=== PATIENT | female | born 1985 | race Caucasian/White ===

== ENCOUNTER → 2020-11-17 10:44 | Outpatient (CLI) | payer OTHER, SELFPAY ==
--- NOTE | ~2020-11-17 | US_ITS ---
EXAMINATION: US right upper quadrant DATE: 11/17/2020 11:02 INDICATION: Dyspepsia, abdominal pain TECHNIQUE: Multiple grayscale and Doppler ultrasound images of the abdomen were obtained. COMPARISON: None available FINDINGS: The head, body, and tail of the pancreas are normal. The liver is normal with normal echoge nicity and echotexture. No surface nodularity. Normal hepatopetal flow in the main portal vein. The g allbladder is normal with no abnormal wall thickening, pericholecystic fluid or stones. The normal co mmon bile duct measures 2 mm. There was no sonographic Short sign. IMPRESSION: 1. Normal sonographic study of the gallbladder. Reviewed, dictated and finalized at location B.
== END ==
PROVIDERS: PCP Physician Assistant Medical; Visit Provider Physician Assistant Medical
DX: R10.13 Epigastric pain (principal); R10.9 Unspecified abdominal pain
CPT/HCPCS: 76705

== ENCOUNTER 2023-03-01 12:15 | Emergency (ER) | payer OTHER, SELFPAY ==
--- NOTE | ~2023-03-01 | XR_ITS ---
XR finger 2nd LT min 2V DATE: 03/01/2023 12:33 INDICATION: Dropped weight on distal index finger. Pain. TECHNIQUE: 3 views COMPARISON: None FINDINGS: There is a comminuted fracture of the distal phalanx of the second digit, including 2 large up to definitely oriented linear nondisplaced fracture lines through the shaft, one extending into t he region of the base. There is a transverse medially completely posteriorly displaced fracture at the base of the tuft. No other fracture or dislocation or any radiopaque soft tissue foreign body is noted. IMPRESSION: Comminuted fracture of distal phalanx Reviewed, dictated and finalized at location A. [employer]OCI[employer]
[2023-03-01 12:27] VITALS: BP 112/79; PULSE 73; RESP 16; TEMP 37; O2SAT 100
--- NOTE | 2023-03-01 12:55 | ED.UPPEXIN ---
HPI - Extremity Injury (Upper) General Chief Complaint: Extremity Injury, Upper Stated Complaint: Injured Finger Time Seen by Provider: 03/01/23 12:48 Source: patient and RN notes reviewed Mode of arrival: ambulatory Limitations: no limitations History of Present Illness HPI narrative: Patient presents today complaining of an injury to her left 2nd finger. A weight at the gym was accidentally dropped on to her finger approximately 2 hours prior to exam. She does report some numbness to the tip of the finger. Currently rates her pain 7/10. Related Data Allergies Allergy/AdvReac Type Severity Reaction Status Date / Time Penicillins Allergy Severe lowers Verified 02/14/23 15:00 heart rate azithromycin [From Zithromax] Allergy Unknown Rash Unverified 02/14/23 15:00 clindamycin Allergy Unknown Rash Unverified 02/14/23 15:00 Review of Systems Review of Systems: CONSTITUTIONAL: Denies body aches, fever, chills, or sweats. EYES: Denies visual changes, redness, or discharge. ENT: Denies rhinorrhea, congestion, sore throat, or otalgia. CARDIOVASCULAR: Denies chest pain, palpitations, or edema. RESPIRATORY: Denies cough or dyspnea. GASTROINTESTINAL: Denies abdominal pain, nausea, vomiting, or diarrhea. GENITOURINARY: Denies dysuria or hematuria. SKIN: Denies rash, itching, or wounds. MUSCULOSKELETAL: + left 2nd finger injury NEUROLOGIC: Denies headache, numbness, tingling, or weakness. PSYCH: Denies depression or anxiety. [facility] Past Medical History Medical History Anxiety Surgical History Surgical History History of reconstruction of anterior cruciate ligament tear right History of repair of right rotator cuff Social History Social History Smoking status: Unknown if ever smoked Alcohol intake: current Drinks per week: 1 Substance use: never Substance use type: does not use Lack of Transportation: No Lack of Food: Never True Current Housing: I Have Housing Concerned About Future Housing: No Difficulty Paying Gas/Electric Bills: No Difficulty Paying for Meds: No Currently Unemployed: No Difficulty w/ Childcare or Family Care: No Living arrangements: with family Occupation/Education: occupation Gender identity (if verbalized by the patient): Female Sexual Orientation (if Verbalized by the Patient): Straight or Heterosexual Comments At time of signature, I have reviewed and agree with nursing past medical, surgical, social and family history unless otherwise noted. Please see nursing chart for further information. There is no relevant family history pertinent to the presenting complaint Exam Narrative: GENERAL: Well-appearing, well-nourished, and in no acute distress. HEAD: Normocephalic, atraumatic. EYES: EOMI. No redness or drainage. Conjunctivae normal. ENT: Mucous membranes pink and moist. NECK: Normal AROM. CHEST: No respiratory distress. EXTREMITIES: Left 2nd finger: Edema and ecchymosis to the PIP extending to the D IP. Tenderness from the PIP to the distal phalanx. Distal sensation is intact. Capillary refill normal. Decreased range of motion due to pain and swelling. SKIN: Warm, dry, no rash. Capillary refill normal. Normal skin turgor. NEURO: No focal deficits. Alert and oriented x3. Gait steady. PSYCH: Normal affect. No signs of depression or anxiety. Course Course Level of Care: Express Care Visit Vital Signs Vital signs: Vital Signs Temperature 98.6 F 03/01/23 12:27 Pulse Rate 73 03/01/23 12:27 Respiratory Rate 16 03/01/23 12:27 Blood Pressure 112/79 03/01/23 12:27 Pulse Oximetry 100 03/01/23 12:27 Temperature 98.6 F 03/01/23 12:27 Pulse Rate 73 03/01/23 12:27 Respiratory Rate 16 03/01/23 12:27 Blood Pressure 112/79 12
== END 2023-03-01 13:10 | disposition home or self-care (01) ==
PROVIDERS: Emergency Provider Nurse Practitioner; PCP Physician Assistant Medical
DX: S62.630A Displaced fracture of distal phalanx of right index finger, initial encounter for closed fracture (principal); W20.8XXA Other cause of strike by thrown, projected or falling object, initial encounter
CPT/HCPCS: 29130; 73140; 99214; G0463

== ENCOUNTER 2024-08-19 02:30 | Day surgery (SDC) | payer OTHER, SELFPAY ==
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
--- OUTSIDE RECORDS SUMMARY | 2024-08-19 02:33 | XMS_ITS | Encounter Summary ---
Author Organization [facility] Healthcare Address [address] [place] [address] Care Team Providers Care Advertising Operations Coordinator Name Role Phone Katy Wills Unavailable [phone] Bridget Murphy Primary Care Provider [phone] Encounter Details Date Type Department Care Team (Late st Contact Info) Description 09/28/2021 Telephone [facility] [address] [place] [id number] Leila Johnson, RT Social History Tobacco Use Types Packs/Day Years Used Date Smoking Tobacco: Never Smokeless Tobacco: Never Alcohol Use Standard Drinks/Week Comments Yes 0 (1 standard drink = 0.6 oz pur e alcohol) socially AUDIT-C Answer Date Recorded Q1: How often do you have a drink containing alc ohol? 2-4 times a month 07/13/2020 Q2: How many drinks containi ng alcohol do you have on a typical day when you are drinking? 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
--- OUTSIDE RECORDS SUMMARY | 2024-08-19 02:33 | XMS_ITS | Referral Summary ---
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 Gender Identity Female 07/31/2020 9:22 PM CDT Sexual Orientation Straight 07/31/2020 9: 22 PM CDT Last Filed Vital Signs Vital Sign Reading Time Taken Comments Blood Pressure 110/71 04/25/2022 8:05 AM PHILOSOPHY PROFESSOR Pulse 66 04/25/2022 8:05 AM PHILOSOPHY PROFESSOR Temperature 36.7 C (98 F) 12/04/2021 2:22 PM CDT Respiratory Rate 18 12/04/2021 2:22 PM CDT Oxygen Saturation 97% 12/04/2021 2:22 PM CDT Inhaled Oxygen Concentration - - Weight 74.8 kg (165 lb) 03/12/2023 5:40 PM PHILOSOPHY PROFESSOR Height 162.6 cm (5' 4) 03/12/2023 5:40 PM PHILOSOPHY PROFESSOR Body Mass Index 28.32 03/12/2023 5:40 PM PHILOSOPHY PROFESSOR Plan of Treatment Not on file Medical Devices Implanted Type Area Thermocouple Tester Device Identifier Shelf Expiration Date Model / Serial / Lot Tightrope Abs, Implant, Open Implanted:Qty: 1 on 07/18/2020 by Frederic Santana MD at [facility] Right: Knee [employer] [id number] 03/09/2025 AR-15 88TN- 1 / / [id number] Description:[facility] ITEM# [id number] IS FLAGGED IN [facility] CHARGE CODE ASSIGNED 325298 COST 194.00EA [employer] [id number] Device Fxatn Tightrope Deploying Suture - [id number] Implanted:Qty: 1 on 07/18/2020 by Frederic Santana MD at [facility] Right: Knee [employer] 04/09/2025 AR-15 88BTB -J / / [id number] [employer] Ar-1588tb-4 Tightrope 14mm Attachable Round Concave Button Fixation - [id number] Implanted:Qty: 1 on 07/18/2020 by Frederic Santana MD at [facility] Right: Knee [employer] 05/07/2025 AR-15 88TB- 4 / / [id number] [facility] Flexigraft Graftlink 7.5-10.5mm 60-80mm Frozen Allograft - [id number] - [id number] Implanted:Qty: 1 on 07/18/2020 by Frederic Santana MD at [facility] Right: [facility] C1713 06/14/2023 FGL / [id number] / [id number] [employer] Ar-2324bcc Swivelock C 4.75mm 19.1mm Closed Eyelet Vent [place] Suture - [id number] Implanted:Qty: 1 on 07/18/2020 by Frederic Santana MD at [facility] Right: Knee [employer] 02/07/2024 AR-23 24BCC / / [id number] [employer] [place] Suture 2.4mm Pushlock Biocomposite 11.3mm 1 Fiberwire Ar-2922bc - [id number] Implanted:Qty: 1 on 12/04/2021 by Frederic Santana MD at [facility] Right: Shoulder [employer] 05/08/2023 AR-2922BC / / [id number] [employer] Fiberlink Arthrex Suturetape 1.3mm Tape Suture Nonabsorbable Ar-7535 - [id number] Implanted:Qty: 1 on 12/04/2021 by Frederic Santana MD at [facility] Right: Shoulder [employer] 02/06/2026 AR-7535 / / [id number] Insurance CHOICE PLUS [facility] H[facility]/PPO Address: [place] [address] CHOICE PLUS [facility] HMO/PPO Address: [place] [address] CHOICE PLUS [facility] HMO/PPO Address: [place] [address] Care Teams Turner In Relationship Specialty Start Date End Date Bridget Murphy PA [address] [place] [id number] PCP - General Physician Net Fisher 08/31/20 Katy Wills PA Physician Net Fisher Orthopedic Surgery 07/18/20
[2024-08-19 06:28] VITALS: BP 119/81; PULSE 72; RESP 16; TEMP 36.7; O2SAT 100
[2024-08-19] MEDS: LACTATED RINGERS 1,000 ML 150 ML IV CONT (06:36)
--- NOTE | 2024-08-19 07:20 | P.PNAN_ITS ---
Anes - Initial Pre Proc Eval Procedure: Operation Date: 08/19/24 07:30 Proposed Procedures p Screening Colonoscopy - Kenji Crockett MD Date/Time: 08/19/24 07:20 Surgeon: Kenji Crockett MD Pre Op Diagnosis: Screening Patient Data Age: 39 Gender: F Height: 1.63 m Weight: 80.6 kg Last Vital Signs Temp 98.1 F 08/19/24 06:28 Pulse 72 08/19/24 06:28 Resp 16 08/19/24 06:28 BP 119/81 08/19/24 06:28 Pulse Ox 100 08/19/24 06:28 O2 Del Method Room Air 08/19/24 06:28 Allergies Allergy/AdvReac Type Severity Reaction Status Date / Time Penicillins Allergy Severe lowers Verified 08/19/24 06:25 heart rate azithromycin (From Zithromax) Allergy Unknown Rash Verified 08/19/24 06:25 clindamycin Allergy Unknown Rash Verified 08/19/24 06:25 Home Medications ?Medication ?Instructions ?Recorded ?Confirmed ?Type escitalopram oxalate 10 mg tablet 10 mg PO DAILY #90 tabs 04/08/24 08/19/24 Rx (Lexapro) Patient hx anesthesia problems: none Family hx anesthesia problems: none Results Review: All pre-operative results and documents have been reviewed as part of the pre- operative evaluation. [facility] Past Medical History Medical History Anxiety Surgical History Surgical History History of repair of right rotator cuff History of reconstruction of anterior cruciate ligament tear right Family History Family History (Updated 04/08/24 @ 14:41 by Gudelia Momin PA-C) Father Carcinoma of colon, Onset Age: 55 Social History Social History Social History: 04/06/24 very confident with medical forms Smoking status: Never smoker Alcohol intake: current Drinks per week: 1 Substance use: never Substance use type: does not use Do You Feel Safe in your Home?: Yes Lack of Transportation: No Lack of Food: Never True Current Housing: I Have Housing Concerned About Future Housing: No Difficulty Paying Gas/Electric Bills: No Difficulty Paying for Meds: No Currently Unemployed: No Education: Master's Degree or Higher Difficulty w/ Childcare or Family Care: No Living arrangements: with family Occupation/Education: occupation Gender identity (if verbalized by the patient): Female Sexual Orientation (if Verbalized by the Patient): Straight or Heterosexual Spiritual care concerns: No Anes - Eval Final PreProcedure Day of Procedure 08/19/24 07:20 Patient weight: obese Heart: regular rate and rhythm Lungs: clear to auscultation Airway: Mallampati scale class II Neurological: alert and oriented Last oral intake: >/= 8 hours ASA classification: II Emergent: no Anesthetic plan: proceed Anesthesia type and monitoring: general GIVS and standard monitoring Results Review: All pre-operative results and documents have been reviewed as part of the pre- operative evaluation. Informed Consent: The patient's anesthetic plan and its attendant risks and benefits were discussed with the patient/family/POA. Questions were solicited and answers provided to the satisfaction of the patient/family/POA.
--- NOTE | 2024-08-19 07:22 | PM.IMHP ---
H&P: HPI History of Present Illness Date/Time: 08/19/24 07:22 Chief Complaint: family history of colorectal cancer Narrative: This patient has family history of colorectal cancer. her father had when he was in his early 50s. This is her 2nd colonoscopy. Review of Systems Review of Systems: All systems reviewed & are unremarkable except as noted in HPI and below PMFSH Past Medical History Medical History Anxiety Surgical History Surgical History History of repair of right rotator cuff History of reconstruction of anterior cruciate ligament tear right Family History Family History (Updated 04/08/24 @ 14:41 by Gudelia Momin PA-C) Father Carcinoma of colon, Onset Age: 55 Social History Social History Social History: 04/06/24 very confident with medical forms Smoking status: Never smoker Alcohol intake: current Drinks per week: 1 Substance use: never Substance use type: does not use Do You Feel Safe in your Home?: Yes Lack of Transportation: No Lack of Food: Never True Current Housing: I Have Housing Concerned About Future Housing: No Difficulty Paying Gas/Electric Bills: No Difficulty Paying for Meds: No Currently Unemployed: No Education: Master's Degree or Higher Difficulty w/ Childcare or Family Care: No Living arrangements: with family Occupation/Education: occupation Gender identity (if verbalized by the patient): Female Sexual Orientation (if Verbalized by the Patient): Straight or Heterosexual Spiritual care concerns: No Meds Home Medications and Allergies Home Medications ?Medication ?Instructions ?Recorded ?Confirmed ?Type escitalopram oxalate 10 mg tablet 10 mg PO DAILY #90 tabs 04/08/24 08/19/24 Rx (Lexapro) Allergies Allergy/AdvReac Type Severity Reaction Status Date / Time Penicillins Allergy Severe lowers Verified 08/19/24 06:25 heart rate azithromycin (From Zithromax) Allergy Unknown Rash Verified 08/19/24 06:25 clindamycin Allergy Unknown Rash Verified 08/19/24 06:25 Vital Signs Vital Signs - 24 hr 08/19/24 06:28 Temperature 98.1 F Pulse Rate 72 Respiratory Rate 16 Blood Pressure 119/81 Pulse Oximetry 100 Oxygen Delivery Room Air Exam Const: General: cooperative and healthy appearing Resp: Effort & Inspection: normal respiratory effort and able to speak in complete sentences Auscultation: clear to auscultation bilaterally Cardio: Rate: regular rate Rhythm: regular rhythm GI: Inspection: normal to inspection GI Palp: No No hepatosplenomegaly present Auscultation: normal bowel sounds Rectal Exam: deferred Skin: General skin exam: normal color Psych: Appearance: grossly normal Mental Status: mental status grossly normal Assessment and Plan Assessment and plan (1) Family history of colorectal cancer: Code(s): Z80.0 - Family history of malignant neoplasm of digestive organs Status: Acute Assessment and Plan: The patient is deemed a good candidate for the procedure. Consent signed. Will proceed.
[2024-08-19] MEDS: SIMETHICONE ORAL SUSPENSION 20 MG/0.3 ML 30 ML BOTTLE 0.6 ML IRRIGATION (07:40)
[2024-08-19 07:41] LABS: BEDSIDEPREGUCG Negative (Negative)
--- NOTE | 2024-08-19 07:47 | S_PTH ---
PATIENT: Nenita Green LOC: [facility] U#:[id number] AGE/SX: 39/F ROOM: RE08/19/[address]: Kenji Crockett MD : 1985 BED: DIS: 08/19/2024 SPEC #: [id number] RECD: 08/19/24 08:56 STATUS: CHANTEL REMatthew #: [id number] SULY: 08/19/24 07:[address]: Kenji Crockett DEPT: [facility] Surgical RECD BY: Trisha Baig ENTERED: 08/19/24 08:57 SP TYPE: Surgical OTHR DR: Gudelia Momin PA-C Tissues: A - Colon Polypectomy B - Colon Polypectomy Procedures: Hematoxylin and Eosin Stain Gross and Microscopic Level 4
[2024-08-19 07:50] VITALS: BP 102/58; PULSE 71; RESP 20; O2SAT 100
[2024-08-19 08:00] VITALS: BP 120/79; PULSE 69; RESP 18; O2SAT 99
[2024-08-19 08:10] VITALS: BP 123/81; PULSE 67; RESP 15; O2SAT 98
== END 2024-08-19 08:23 | disposition home or self-care (01) ==
PROVIDERS: PCP Physician Assistant Medical; Referring Provider Physician Assistant Medical; Visit Provider Internal Medicine Gastroenterology
PROC: 0DJD8ZZ Inspection of Lower Intestinal Tract, Via Natural or Artificial Opening Endoscopic (ICD-10-PCS; CPT 45378; principal; 2024-08-19 07:30)
DX: Z12.11 Encounter for screening for malignant neoplasm of colon (principal); D12.0 Benign neoplasm of cecum; D12.8 Benign neoplasm of rectum; F41.9 Anxiety disorder, unspecified; E66.9 Obesity, unspecified; Z80.0 Family history of malignant neoplasm of digestive organs; Z68.30 Body mass index [BMI] 30.0-30.9, adult; Z98.890 Other specified postprocedural states
CPT/HCPCS: 45385; 88305; J2003; J2704; J7120

== ENCOUNTER 2025-03-07 14:52 | Outpatient (CLI) | payer OTHER, SELFPAY ==
[2025-03-07 15:06] LABS: Hematocrit 43.7 % (37.0-47.0); Hemoglobin 14.3 g/dL (12.0-15.0); Mean Corpuscular HGB Conc 32.7 g/dl (32-36); Mean Corpuscular Hemoglobin 29.3 pg (26-34); Mean Corpuscular Volume 89.5 fl (80-100); Platelet Count Result 188 k/mm3 (150-375); Red Blood Count 4.88 M/mm3 (4.2-5.4); White Blood Count 9.8 K/mm3 (4.5-10.0)
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
--- OUTSIDE RECORDS SUMMARY | 2025-03-07 15:08 | XMS_ITS | Encounter Summary ---
Author Organization [facility] Address [address] [place] [address] Care Team Providers Care Scraper Burrer Name Role Phone Katy Wills Unavailable [phone] Bridget Murphy Primary Care Provider [phone] Encounter Details Date Type Department Care Team (Late st Contact Info) Description 09/28/2021 Telephone [facility] [address] [place] [id number] Leila Johnson, RT Social History Tobacco Use [...] on file Legal Sex Female 7:03 PM MANAGER SCIENTIFIC Gender Identity Female 07/31/2020 9:22 PM CDT Sexual Orientation Straight 07/31/2020 9: 22 PM CDT documented as of this encounter Plan of Treatment Not on file documented as of this encounter Visit Diagnoses Not on filedocumented in this encounter Care Teams Scraper Burrer Relationship Specialty Start Date End Date Bridget Murphy PA [address] [place] [id number] PCP - General Physician Three Knife Trimmer 08/31/20 Katy Wills PA Physician Three Knife Trimmer Orthopedic Surgery 07/18/20 documented as of this encounter
--- OUTSIDE RECORDS SUMMARY | 2025-03-07 15:08 | XMS_ITS | Clinical Summary ---
Author Organization [facility] Address [address] [place] [address] Care Team Providers Care Hospice Massage Therapist Name Role Phone JohannKaty koehlerYamileth PA Unavailable [phone] Bridget Murphy Primary Care Provider [phone] Allergies Active Allergy Reactions Criticality Noted Date [...] (11/20/2021): Added automatically from request for surgery [id number] Rupture of anterior cruciate ligament of right [...] file Legal Sex Female 7:03 PM DIRECTOR ORACLE Gender Identity Female 07/31/2020 9:22 PM CDT Sexual Orientation Straight 07/31/2020 9: 22 PM CDT Last Filed Vital Signs Vital Sign Reading Time Taken Comments Blood Pressure 110/71 04/25/2022 8:05 AM DIRECTOR ORACLE Pulse 66 04/25/2022 8:05 AM DIRECTOR ORACLE Temperature 36.7 C (98 F) 12/04/2021 2:22 PM CDT Respiratory Rate 18 12/04/2021 2:22 PM CDT Oxygen Saturation 97% 12/04/2021 2:22 PM CDT Inhaled Oxygen Concentration - - Weight 74.8 kg (165 lb) 03/12/2023 5:40 PM DIRECTOR ORACLE Height 162.6 cm (5' 4) 03/12/2023 5:40 PM DIRECTOR ORACLE Body Mass Index 28.32 03/12/2023 5:40 PM DIRECTOR ORACLE Plan of Treatment Health Maintenance Due Date Last Done Comments Cervical Cancer Screening 1986 Depression Screening 1986 Hepatitis C Screening 1986 Varicella Vaccines (1 of 2 - 13+ 2-dose series) 07/17/1999 Hepatitis B Screening 2004 Regular Well Visit/Exam 18-64 2004 HPV Vaccines (1 - 3-dose SCD M series) 2013 Covid-19 Vaccine ( - 2024-2 6 season) 2024 09/13/2021, 05/20/2020, 04/22/2020 Influenza Vaccine (#1) 2024 DTaP/Tdap/Td Vaccine (3 - Td or Tdap) 06/22/2030 06/22/2020, 08/14/2012 Pneumococcal vaccine <65 Aged Out No longer eligible based on patient's age to complete this topic Medical Devices Implanted Type Area Director Institution Device Identifier Shelf Expiration Date Model / Serial / Lot Tightrope Abs, Implant, Open Implanted:Qty: 1 on 07/18/2020 by Frederic Santana MD at [facility] Right: Knee [employer] [id number] 03/09/2025 AR-15 88TN- 1 / / [id number] Description:[facility] ITEM# [id number] IS FLAGGED IN [facility] CHARGE CODE ASSIGNED [id number] COST 194.00EA [employer] [id number] Device Fxatn Tightrope Deploying Suture - [id number] Implanted:Qty: 1 on 07/18/2020 by Frederic Santana MD at [facility] Right: Knee [employer] 04/09/2025 AR-15 88BTB -J / / [id number] [employer] Ar-1588tb-4 Tightrope 14mm Attachable Round Concave Button Fixation - [id number] Implanted:Qty: 1 on 07/18/2020 by Frederic Santana MD at [facility] Right: Knee [employer] 05/07/2025 AR-15 88TB- 4 / / [id number] Lifenet Fgl Flexigraft Graftlink 7.5-10.5mm 60-80mm Frozen Allograft - [id number] - [id number] Implanted:Qty: 1 on 07/18/2020 by Frederic Santana MD at [facility] Right: Knee [employer] [id number] 06/14/2023 FGL / [id number] / [id number] [employer] Ar-[id number] Swivelock C 4.75mm 19.1mm Closed Eyelet Vent [place] Suture - [id number] Implanted:Qty: 1 on 07/18/2020 by Frederic Santana MD at [facility] Right: Knee [employer] 02/07/2024 AR-23 24BCC / / [id number] [employer] [place] Suture 2.4mm Pushlock Biocomposite 11.3mm 1 Fiberwire Ar-[id number] - [id number] Implanted:Qty: 1 on 12/04/2021 by Frederic Santana MD at [facility] Right: Shoulder [employer] 05/08/2023 AR-2922BC / / [id number] [employer] Fiberlink Arthrex Suturetape 1.3mm Tape Suture Nonabsorbable Ar-7535 - [id number] Implanted:Qty: 1 on 12/04/2021 by Frederic Santana MD at [facility] Right: Shoulder [employer] 02/06/2026 AR-7535 / / [id number] Insurance [facility] Care Teams Hospice Massage Therapist Relationship Specialty Start Date End Date Bridget Murphy PA [address] [place] [address] PCP - General Physician Sales Associate Cashier 08/31/20 Katy Wills PA Physician Sales Associate Cashier Orthopedic Surgery 07/18/20
--- OUTSIDE RECORDS SUMMARY | 2025-03-07 15:08 | XMS_ITS | Clinical Summary ---
Author Organization [facility] Address [address] [place] [address] Care Team Providers Care Dietetic Intern Name Role Phone No, Pcp SUPERVISOR DIAGNOSTIC Primary Care Provider Unavailabl e Social History Tobacco Use Types Packs/Day Years Used Date Smoking Tobacco: Never Assessed Comments Unknown Sex and Gender Information Value Date Recorded Sex Assigned at Not on file Legal Sex Female 6:58 AM EST Gender Identity Not on file Sexual Orientation Not on file Plan of Treatment Not on file Medical Devices Not on file Care Teams Dietetic Intern Relationship Specialty Start Date End Date No, Pcp, SUPERVISOR DIAGNOSTIC N/A Do not use PCP - General Family Medicine 01/15/20
[2025-03-07 15:20] LABS: Alanine Aminotransferase 21 U/L (6-35); Albumin Level 4.2 g/dL (3.5-5.1); Alkaline Phosphatase 75 U/L (38-126); Anion Gap 4 mmol/L (4-12); Aspartate Amino Transferase 29 U/L (14-36); Bilirubin,Total 0.4 mg/dL (0.2-1.3); Blood Urea Nitrogen 19 mg/dL (7-17); Calcium 9.4 mg/dL (8.4-10.2); Carbon Dioxide 29 mmol/L (22-30); Chloride 105 mmol/L (98-107); Estimated Glomerular Filt Rate > 60; Glucose 95 mg/dL (65-110); Potassium 4.0 mmol/L (3.4-5.0); Sodium 138 mmol/L (137-145); Total Protein 7.3 g/dL (6.3-8.2)
== END 2025-03-07 14:53 | disposition home or self-care (01) ==
LOC: ANHLAB 14:54
PROVIDERS: PCP Physician Assistant Medical; Visit Provider Nurse Practitioner Family
DX: R10.84 Generalized abdominal pain (principal)
CPT/HCPCS: 36415; 80053; 85027